=== PATIENT | female | born 1960 | race African-American/Black ===

== ENCOUNTER 2023-07-01 12:32 | Outpatient (CLI) | payer MEDICARE | END 2023-07-01 12:33 | disposition home or self-care (01) | LOC: BICULT 12:32 | PROVIDERS: ATTEND Internal Medicine Nephrology | DX: I13.10 Hypertensive heart and chronic kidney disease without heart failure, with stage 1 through stage 4 chronic kidney disease, or unspecified chronic kidney disease (principal); N18.9 Chronic kidney disease, unspecified; D63.1 Anemia in chronic kidney disease; K21.9 Gastro-esophageal reflux disease without esophagitis; N20.0 Calculus of kidney; M19.90 Unspecified osteoarthritis, unspecified site; M32.10 Systemic lupus erythematosus, organ or system involvement unspecified; M10.9 Gout, unspecified; E66.9 Obesity, unspecified; N28.1 Cyst of kidney, acquired | CPT/HCPCS: 76770; 93975 ==

== ENCOUNTER 2024-02-02 13:08 | Emergency (ER) | payer MEDICARE | END 2024-02-02 14:42 | disposition home or self-care (01) | LOC: ERS 13:08 | DX: M79.672 Pain in left foot (principal); Z55.6 Problems related to health literacy | CPT/HCPCS: 99283 ==

== ENCOUNTER 2024-11-20 18:00 | Emergency (ER) | payer MEDICARE ==
[2024-11-20 19:35] LABS: #Basophils 0.03 10x3/uL (0.0-0.2); #Eosinophils 0.07 10x3/uL (0.0-0.7); #Monocytes 0.63 10x3/uL (0.11-0.59); #Neutrophils 7.10 10x3/uL (1.40-6.50); %Basophils 0.3 % (0.0-1.0); %Eosinophils 0.8 % (0.0-10.0); %Lymphocytes 14.5 % (21.0-51.0); %Monocytes 6.9 % (0.0-10.0); %Neutrophils 77.3 % (42.0-75.0); Hematocrit 36.9 % (36.0-47.0); Hemoglobin 11.3 g/dL (12.0-16.0); Mean Corpuscular Hemoglobin 23.7 pg (27.0-31.0); Mean Corpuscular Volume 77.5 fL (78.0-98.0); Platelet Count 247 10x3/uL (130-400); Red Blood Cell (RBC) Count 4.76 mill/uL (4.20-5.40); White Blood Cell (WBC) Count 9.18 10x3/uL (4.8-10.8)
[2024-11-20 20:04] LABS: Anion Gap 19 mmol/L (10-20); Chloride 95 mmol/L (98-107); Potassium 4.0 mmol/L (3.5-5.1); Sodium 135 mmol/L (136-145)
[2024-11-20 20:07] LABS: ALT (SGPT) Less than 7 U/L (Less than 34); AST (SGOT) 21 U/L (11-34); Albumin 3.9 g/dL (3.1-4.5); Alkaline Phosphatase 73 U/L (40-110); BUN (Urea Nitrogen) 16 mg/dL (9.8-20.1); Bilirubin, Total 0.3 mg/dL (0.3-1.2); Calc. Creatinine Clearance 0 mL/min (70-130); Calcium 9.7 mg/dL (7.8-10.44); Globulin 4.3 g/dL (2.4-3.5); Glucose 84 mg/dL (80-115)
[2024-11-20 20:16] LABS: Carbon Dioxide 25 mmol/L (23-31)
== END 2024-11-20 19:50 | disposition home or self-care (01) ==
LOC: ERS 18:00
DX: S63.611A Unspecified sprain of left index finger, initial encounter (principal); I10 Essential (primary) hypertension; W55.01XA Bitten by cat, initial encounter
CPT/HCPCS: 73140; 80053; 85025; 86141; 99283; J0295

== ENCOUNTER 2024-11-21 11:25 | Day surgery (SDC) | payer MEDICARE ==
[2024-11-21] MEDS ORDERED: Bacitracin Zinc Ointment 30 gm TUBE ONE (12:27)
[2024-11-21] MEDS ORDERED: Lidocaine 1% (PF) 30 ML VIAL ONE (13:20)
[2024-11-21] MEDS ORDERED: Vancomycin 1 GM/200 ML (FROZEN) BAG ONE (13:33)
== END 2024-11-21 16:49 | disposition home or self-care (01) ==
LOC: SDC 11:25
PROVIDERS: ATTEND Orthopaedic Surgery Hand Surgery
PROC: 0J9K0ZZ Drainage of Left Hand Subcutaneous Tissue and Fascia, Open Approach (ICD-10-PCS; principal; 2024-11-21)
PROC: 01Q60ZZ Repair Radial Nerve, Open Approach (ICD-10-PCS; 2024-11-21)
PROC: 3E0T3BZ Introduction of Anesthetic Agent into Peripheral Nerves and Plexi, Percutaneous Approach (ICD-10-PCS; 2024-11-21)
DX: L02.512 Cutaneous abscess of left hand (principal); M65.842 Other synovitis and tenosynovitis, left hand
CPT/HCPCS: 26010; 26145; 64415; 64702; 87070; 87075; 87077; 87205; J0665; J3373; 99152; 99153; J2003